=== PATIENT | male | born 2005 | race Caucasian/White ===

== ENCOUNTER 2023-07-07 11:51 | Emergency (ER) | payer BC, OTHER ==
[2023-07-07 11:58] VITALS: BP 132/81; PULSE 79; RESP 18; TEMP 98.5; BMI 19.2
== END 2023-07-07 12:15 | disposition home or self-care (01) ==
LOC: FER 11:51
DX: K62.5 Hemorrhage of anus and rectum (principal); R05.9 Cough, unspecified; R06.02 Shortness of breath; K59.00 Constipation, unspecified
CPT/HCPCS: 99282-25

== ENCOUNTER 2024-09-22 18:22 | Emergency (ER) | payer BC ==
[2024-09-22 18:27] VITALS: BP 134/87; PULSE 79; RESP 18; TEMP 98.2
[2024-09-22] MEDS ORDERED: FLUORESCEIN NA 1 EA STRIP ONE (19:20)
[2024-09-22] MEDS ORDERED: TETRACAINE 0.5% OPHTH SOLN 2 ML BOTTLE ONE (19:20)
[2024-09-22] MEDS ORDERED: TOBRAMYCIN/DEXAMETHASONE OPHTH. OINTMENT 1 TUBE ONE (20:01)
[2024-09-22] MEDS ORDERED: TOBRAMYCIN 0.3% OPHTH SOLN 5 ML BOTTLE ONE (20:05)
[2024-09-22] MEDS ORDERED: TOBRA 0.3%/DEXAMETH 0.1% OPHTHALMIC SUSP 2.5 ML BTL ONE (20:08)
[2024-09-22] MEDS: TOBRAMYCIN/DEXAMETHASONE OPHTH. OINTMENT 1 TUBE OS ONE (20:10)
[2024-09-22] MEDS: TOBRA 0.3%/DEXAMETH 0.1% OPHTHALMIC SUSP 2.5 ML BTL OS STA (20:10)
== END 2024-09-22 20:10 | disposition home or self-care (01) ==
LOC: FER 18:22
DX: S05.02XA Injury of conjunctiva and corneal abrasion without foreign body, left eye, initial encounter (principal); W22.8XXA Striking against or struck by other objects, initial encounter
CPT/HCPCS: 99283-25